=== PATIENT | female | born 1970 | race African-American/Black ===

== ENCOUNTER 2018-12-27 15:35 | Emergency (ER) | payer OTHER ==
[~2018-12-27] VITALS: Ht 157.5 cm; Wt 61.2 kg
[~2018-12-27 15:35] MED LIST: IBUPROFEN 600600 M1 PO; IBUPROFEN200 M2 PO; NOHOMEMEDICATIONS; NORCO 5-325 TA1 EACH PO; NORCO 7.5-3251 EACH; PHENERGAN 25 MG25 M1 PO; TESSALON PERLE100 MG PO; ZPAK PO
[2018-12-27] MEDS ORDERED: ESTROGEN PATCH (16:01)
[2018-12-27] MEDS ORDERED: NAPROSYN500 MG PO (18:05)
[2018-12-27] MEDS ORDERED: HYDROCODONE-AP1 EAC6 PO (18:05)
[2018-12-27 18:54] VITALS: BP 110/59
== END 2018-12-27 18:55 | disposition home or self-care (01) ==
LOC: ER 15:35
DX: S92.331A Displaced fracture of third metatarsal bone, right foot, initial encounter for closed fracture (principal); F17.210 Nicotine dependence, cigarettes, uncomplicated; Z98.890 Other specified postprocedural states; Z90.49 Acquired absence of other specified parts of digestive tract; Z90.710 Acquired absence of both cervix and uterus; W22.8XXA Striking against or struck by other objects, initial encounter; Y93.89 Activity, other specified; Y92.89 Other specified places as the place of occurrence of the external cause; Y99.8 Other external cause status